=== PATIENT | male | born 1975 | race Caucasian/White ===

== ENCOUNTER 2016-07-17 17:05 | Emergency (ER) | payer OTHER, BC ==
[~2016-07-17] VITALS: Ht 185.4 cm; Wt 114.2 kg
[~2016-07-17 17:05] MED LIST: ATV5 PO; CEPH500C PO; FLNIN NAE; GLUCOSAMINE PO; OLAN-111 PO
[2016-07-17 17:16] VITALS: BP 153/102; PULSE 83; TEMP 36.8; O2SAT 98; Ht 185.4 cm; Wt 114.2 kg
--- NOTE | 2016-07-20 16:47 | EMERGENCY ROOM VISIT NOTE ---
ED Visit Note First contact with patient: 17:40 Chief Complaint: Burn. History of Present Illness: Mr. Galan is a 41-year-old white male who ambulates into the ED complaining of a thermal burn to the right foot. Patient reports he was at work as a learning and development officer and was carrying hot water with a soap and spilled the hot water on his right foot. He reports prior to arrival at the hospital he noted blister formation over the top of the great toe and second toe. Currently he also complains of pain in this area. He describes it as a burning sensation. He rates his discomfort 5/10. His pain is nonradiating. His pain worsens with palpation and pushing off during ambulation. He has not identified any alleviating factors related to pain he has not taken any medications for pain prior to arrival at the hospital. He denies any other associated symptoms including other foot pain, other toe pain, foot/toe weakness /numbness/tingling or any new/concerning symptoms. Review of Systems: As noted above in history of present illness. Past Medical History: Bronchitis, pneumonia. Current Medications: Medications Dose Route/Sig Max Daily Dose Days Date Category [Glucosamoine] 06/05/07 Reported Flonase Nasal Shannon * (Fluticasone Propionate) Inha 1 Shannon KRISTI BID 06/05/07 Reported Ativan * (Lorazepam) 0.5 Mg Tab 0.5 Mg PO Q6HR PRN 06/05/07 Reported Zyprexa (Olanzapine) 5 Mg Tab 5 Mg PO DAILY 06/05/07 Reported Allergies to Medications: Penicillin. Social History: Patient is currently employed; he feels safe in his home environment; he denies tobacco and alcohol use. Tetanus Immunization Status: Patient reports up-to-date. Physical Examination: Vital Signs: Date Time Temp Pulse Resp B/P Pulse Ox O2 Delivery O2 Flow Rate FiO2 07/17/16 17:16 36.8 83 18 153/102 98 Room Air GENERAL: 41-year-old male in mild distress due to pain, nontoxic-appearing, afebrile and hemodynamically stable. NEUROLOGICAL: Awake, alert and oriented to person, place and time. Answering questions appropriately and following commands. Normal gait. Good hand eye coordination. No focal motor sensory deficits. SKIN: Warm, dry and pink. Right Foot: Partial thickness burn on the top of the great toe and second toe with blister formation; less than 1% body surface area. RIGHT FOOT: Partial thickness burn as noted above. No gross bony deformity. Throughout the toes the skin was warm and pink and capillary refill is brisk. He was able to distinguish light sensations through all dermatomes. ED Course: Patient is assessed as noted above. Patient's gomes were washed with antibacterial soap and water and covered with a bacitracin dressing. Patient was educated about tonight's findings and instructed on his treatment plan; he verbalizes understanding and agreement with this plan. Clinical Impression: Partial-thickness gomes the right foot. Work related injury. Disposition: Patient discharged home in stable condition; prior to departure he was reassessed and subjectively reported he was feeling better and rated his discomfort 2/10. Plan: Comfort measures, wound care and signs of infection were discussed with the patient. Patient was encouraged to follow-up with Workmen's Compensation or return to the ED for signs of infection, uncontrolled pain or any new/concerning symptoms.
== END 2016-07-17 18:15 | disposition home or self-care (01) ==
LOC: C.EDB 17:07 → C.EDD 18:15
DX: T25.221A Burn of second degree of right foot, initial encounter (principal); X12.XXXA Contact with other hot fluids, initial encounter; Y92.89 Other specified places as the place of occurrence of the external cause; Y99.0 Civilian activity done for income or pay; Z79.899 Other long term (current) drug therapy; Z88.0 Allergy status to penicillin

== ENCOUNTER 2017-02-13 14:33 | Emergency (ER) | payer OTHER, BC ==
[~2017-02-13] VITALS: Ht 185.4 cm; Wt 108.5 kg
[2017-02-13 14:36] VITALS: BP 121/89; PULSE 70; TEMP 36.7; O2SAT 96; Ht 185.4 cm; Wt 108.5 kg
[2017-02-13] MEDS ORDERED: GLUC100014 PEG (14:50)
[2017-02-13] MEDS ORDERED: CLR10 PO (14:50)
[2017-02-13] MEDS ORDERED: LIGAPLEX PO (14:50)
[2017-02-13] MEDS ORDERED: OMEG10007 PO (14:50)
[2017-02-13] MEDS ORDERED: TUMMERIC PO (14:50)
[2017-02-13] MEDS ORDERED: FLUT0.15 NAE (14:55)
[2017-02-13] MEDS ORDERED: PROPARACAINE HCL 0.5% OP SOLN 15 ML BTL ONE (14:55)
--- NOTE | 2017-02-13 15:19 | EMERGENCY ROOM VISIT NOTE ---
ED Visit Note First contact with patient: 14:44 CHIEF COMPLAINT: Left eye assessment HISTORY OF PRESENT ILLNESS: Patient is a 41-year-old male who presents emergency department for evaluation of eye. Patient is a [employer] employee works in the [employer]. Today they were cleaning the hoods. He states he was spraying a comber setter on a ride, then wiping overhead to clean them. He states that a piece of debris fell off of the ladd, struck him in the left eye, then fell out. He believes that it was a piece of grease. He was wearing contact lenses at that time and he states that the piece bounced off of his contact lens. There was concerned that there could have been some of the comber setter chemical that came into contact with the eye, so according to the MSDS , he removed his contact lens, and flushed the left eye with cold water for about 15 minutes. The patient has no complaints whatsoever. He denies any eye pain or burning, no drainage or discharge. No tearing. He cannot see out of the eye now as he does not have his contact lens in, otherwise reported that his vision has been fine prior to removing the contact lens. He has no symptoms in the right eye. He denies any foreign body sensation. REVIEW OF SYSTEMS: Review of systems as per HPI. All other systems reviewed were negative. At least 6 systems reviewed. PMH: Electronic medical records are reviewed and summarized as above/below. See Problem List. SOCIAL HISTORY: Patient lives at home with his parents. He is employed. Nonsmoker. PHYSICAL EXAM: Vital Signs: Reviewed Nurse's notes. GENERAL: Patient is a pleasant, well-appearing 41-year-old white male who is awake and alert and in no acute distress. VISUAL ACUITY: 20/25 in the right eye with corrective lens. 20/200 in the left eye without correction. The pupils are round, equal, and react to light. EOMs are full. There is no conjunctival injection, no chemosis. There is no foreign body visible. PH was measured as 7.0. No foreign body was seen embedded in the cornea. The cornea was clear and no hyphema was seen. There was no fluorescein uptake. EMERGENCY DEPARTMENT COURSE: The patient was seen and examined as above. There is no evidence for corneal foreign body, corneal abrasion, chemical conjunctivitis, or other left eye pathology. The patient was reassured. I do not suspect any significant amount of the cleaning material got into the eye. The patient was discharged back to work without restrictions. He can follow up with occupational health if needed. Medication reconciliation: I attest that I have personally reviewed the patient' s current medication list. Blood pressure screening : Patient was found to have normal blood pressure on screening and does not require follow-up. Problem List Medical Problems: (1) Allergic rhinitis Status: Chronic (2) Schizoaffective disorder Status: Chronic (3) Thermal burn Status: Resolved Surgical Problems: (1) History of sinus surgery Status: Resolved Current/Historical Medications Scheduled Fish Oil ([place]-3), 2 CAP PO DAILY Fluticasone Propionate (Nasal) (Flonase Allergy Relief), 1 SPRAY KRISTI BID Glucosamine Sulfate (Glucosamine), 1,000 MG PEG QID Olanzapine (Zyprexa), 5 MG PO DAILY [Glucosamoine], 500 MG PO QID [Ligaplex], 1 TAB PO TID [Tummeric], 1 TAB PO BID Scheduled PRN Loratadine (Claritin), 10 MG PO DAILY PRN for ALLERGIES Allergies Coded Allergies: Penicillins (Unverified Allergy, Unknown, HIVES, 06/21/09) Vital Signs Date Time Temp Pulse Resp B/P (MAP) Pulse Ox O2 Delivery O2 Flow Rate FiO2 02/13/17 14:36 36.7 70 20 121/89 96 Room Air Departure Information Impression Primary Impression: Eye injury, superficial Additional Impression: Work related injury Referrals No Doctor, Assigned (PCP) Patient Instructions My [facility] Additional Instructions May resume normal activity. May wear glasses or contacts. Follow-up with the [facility] on Wednesday if needed. Problem Qualifiers
== END 2017-02-13 15:26 | disposition home or self-care (01) ==
LOC: C.EDB 14:34 → C.EDD 15:26
DX: S05.92XA Unspecified injury of left eye and orbit, initial encounter (principal); X58.XXXA Exposure to other specified factors, initial encounter; Y92.89 Other specified places as the place of occurrence of the external cause; Y99.0 Civilian activity done for income or pay; F25.9 Schizoaffective disorder, unspecified; J30.9 Allergic rhinitis, unspecified